=== PATIENT | female | born 1980 | race Caucasian/White ===

== ENCOUNTER 2020-08-17 05:34 | Day surgery (SDC) | payer BC ==
[2020-08-10 14:05] LABS: PRE OP HEMATOCRIT 39.3 % (35.0-45.0); PRE OP HEMOGLOBIN 13.6 g/dL (12.0-16.0)
[2020-08-10 14:07] LABS: CLARITY,URINE CLEAR (Clear); COLOR,URINE YELLOW (Yellow); GLUCOSE, URINE NEGATIVE (Neg); KETONES,URINE NEGATIVE (Neg); LEUKOCYTE ESTERASE ,URINE NEGATIVE (Neg); NITRITES, URINE NEGATIVE (Neg); OCCULT BLOOD,URINE TRACE-INTACT (Neg); PROTEIN,URINE NEGATIVE (Neg); UROBILINOGEN,URINE 0.2 E.U/dL (0.2-1.0)
[2020-08-10 14:08] LABS: BASOPHILS # (AUTO) 0.1 X10'3 (0-0.2); BASOPHILS % (AUTO) 0.7 % (0-1); EOSINOPHILS # (AUTO) 0.1 X10'3 (0-0.9); EOSINOPHILS % (AUTO) 0.8 % (0-6); LYMPHOCYTES # (AUTO) 3.2 X10'3 (1.1-4.8); LYMPHOCYTES % (AUTO) 20.1 % (21-51); MEAN CORPUSCULAR HEMOGLOBIN 30.7 PG (27.0-31.0); MEAN CORPUSCULAR HGB CONC 34.6 g/dL (33.0-36.5); MEAN CORPUSCULAR VOLUME 88.6 FL (78-98); MONOCYTES # (AUTO) 0.7 X10'3 (0-0.9); MONOCYTES % (AUTO) 4.2 % (2-12); NEUTROPHILS # (AUTO) 11.9 X10'3 (1.8-7.7); NEUTROPHILS % (AUTO) 74.2 % (42-75); PRE OP PLATELET COUNT 363 X10'3 (140-440); RED BLOOD COUNT 4.43 X10'6 (4.20-5.60); RED CELL DISTRIBUTION WIDTH 13.3 % (11.5-14.5)
[2020-08-10 14:13] LABS: HEMOGLOBIN A1C 6.5 % (4.5-6.2)
[2020-08-10 14:21] LABS: UA COLLECTION TYPE CLN CATCH MIDSTREAM
[2020-08-10 14:22] LABS: BACTERIA,URINE NONE SEEN /HPF (Neg); RBC,URINE 0-2 /HPF (0-2); SQUAMOUS EPITHELIAL CELL,UR NONE SEEN /LPF (FEW); WBC,URINE NONE SEEN /HPF (0-4)
[2020-08-10 14:23] LABS: ALBUMIN 3.6 G/DL (3.4-5.0); ALBUMIN/GLOBULIN RATIO 0.9 (1.1-1.5); ALKALINE PHOSPHATASE 136 IU/L (46-116); BLOOD UREA NITROGEN 11 MG/DL (7-18); BUN/CREATININE RATIO 17.2 (6.6-38.0); CALCIUM 9.2 MG/DL (8.5-10.1); CHLORIDE 99 MMOL/L (99-107); CREATININE 0.64 MG/DL (0.40-0.90); PRE OP ALT 56 U/L (30-65); PRE OP ANION GAP 8 (8-16); PRE OP AST 23 U/L (10-37); PRE OP BILIRUB, TOTAL 0.2 MG/DL (0.0-1.0); PRE OP GLUCOSE 95 MG/DL (70-104); PRE OP POTASSIUM 4.2 MMOL/L (3.4-5.1); PRE OP SODIUM 133 MMOL/L (135-145); TOTAL CARBON DIOXIDE 25.7 MMOL/L (24-32); TOTAL PROTEIN 7.6 G/DL (6.4-8.2); eGFR > 90 ML/MIN
[2020-08-10 14:41] LABS: HCG SERUM QL NEGATIVE
[~2020-08-17] VITALS: Ht 167.6 cm; Wt 114.3 kg
[2020-08-17] VITALS (19 sets, daily range): BP systolic 113–139; BP diastolic 60–79
[~2020-08-17 05:34] MED LIST: ASPI-1265 PO; BIRTHCONTROL PO; CALC1TAB PO; CETI-90 PO; CYCL-1 PO; FLUO20CA39 PO; IBUP-1984 PO; LOSA50TA3 PO; METF-900 PO; MONT10TA21 PO; MULT-1085 PO; OMEP-50 PO; SPIR50TA PO; SPIR50TA5 PO; VITA0.4T18 PO; albuterol 2.5 MG/3 ML nebule NEB ONE; ceFOXitin sod/dextrose 2g/50ml 50 ML IV ONE; famotidine 20mg tablet PO ONE
[2020-08-17] MEDS: ringers solution, lacted 1,000 ML IV SCH ×5 (06:17→14:31)
[2020-08-17] MEDS ORDERED: BUPIVAcaine/PF 2.5 mg/ml (0.25%) 30ml vial ONE (07:10)
[2020-08-17] MEDS ORDERED: clindamycin phosphate 40gm vag cream ONE (07:10)
[2020-08-17] MEDS ORDERED: neomy sulf/polymyxin B sulf. GU irrigation 1ml amp IR ONE (07:10)
[2020-08-17] MEDS ORDERED: vasoPRESSIN 20 units/ml inj. ONE (07:10)
[2020-08-17] MEDS ORDERED: midazolam 2 mg/2 ml injection ONE (07:30)
[2020-08-17] MEDS ORDERED: fentaNYL /PF 50mcg/ml 5ml ampule ONE (07:30)
[2020-08-17] MEDS ORDERED: propofol inj 20 ML IV ONE (07:38)
[2020-08-17] MEDS ORDERED: LIDOcaine 2% (20mg/ml) 5ml vial ONE (07:38)
[2020-08-17 07:42] LABS: BASOPHILS % (AUTO) 0.4 % (0-1); EOSINOPHILS # (AUTO) 0.2 X10'3 (0-0.9); EOSINOPHILS % (AUTO) 1.5 % (0-6); HEMATOCRIT 39.8 % (35.0-45.0); HEMOGLOBIN 13.5 g/dl (12.0-16.0); LYMPHOCYTES # (AUTO) 2.4 X10'3 (1.1-4.8); LYMPHOCYTES % (AUTO) 24.6 % (21-51); MEAN CORPUSCULAR HEMOGLOBIN 29.9 PG (27.0-31.0); MEAN CORPUSCULAR VOLUME 88.1 FL (78-98); MEAN PLATELET VOLUME 7.6 FL (7.4-10.4); MONOCYTES # (AUTO) 0.5 X10'3 (0-0.9); MONOCYTES % (AUTO) 5.4 % (2-12); NEUTROPHILS # (AUTO) 6.7 X10'3 (1.8-7.7); NEUTROPHILS % (AUTO) 68.1 % (42-75); PLATELET COUNT 317 X10'3 (140-440); RED BLOOD COUNT 4.51 X10'6 (4.20-5.60); RED CELL DISTRIBUTION WIDTH 13.1 % (11.5-14.5); WHITE BLOOD COUNT 9.8 X10'3 (4.5-11.0)
[2020-08-17] MEDS ORDERED: sevoflurane 250ml liquid IH ONE (07:45)
[2020-08-17] MEDS ORDERED: ringers solution, lacted 1,000 ML IV SCH (07:49)
[2020-08-17] MEDS ORDERED: meperidine/PF 25mg/ml syringe IV PRN ×3 (07:50)
[2020-08-17] MEDS ORDERED: ondansetron/PF 4mg/2ml inj IV PRN (07:50)
[2020-08-17] MEDS ORDERED: proCHLORperazine 10 MG/2 ml inj IV PRN (07:50)
[2020-08-17] MEDS ORDERED: morphine 2 MG/ML inj. syringe IV PRN (07:50)
[2020-08-17] MEDS ORDERED: morphine 4 MG/ML inj SYRINge IV PRN (07:50)
[2020-08-17] MEDS ORDERED: dexamethasone sod phosphate 4mg/ml inj. ONE (07:58)
[2020-08-17] MEDS ORDERED: rocuronium 10mg/ml inj IV ONE (07:58)
[2020-08-17] MEDS ORDERED: ondansetron/PF 4mg/2ml inj ONE (07:58)
[2020-08-17] MEDS ORDERED: bupivacaine 0.25%/epinephrine 1:200,000 inj (contains preserv. MDV) IJ ONE (09:27)
[2020-08-17] MEDS ORDERED: temazepam 15mg capsule PO PRN (09:55)
[2020-08-17] MEDS ORDERED: diphenhydrAMINE 50 mg/ml inj IV PRN (09:55)
[2020-08-17] MEDS ORDERED: HYDROcodone/acetaminophen 10/325mg tab PO PRN (09:55)
[2020-08-17] MEDS ORDERED: metoclopramide 5 mg/ml inj IV PRN (09:55)
[2020-08-17] MEDS ORDERED: LORazepam 1 MG tablet PO PRN (09:55)
[2020-08-17] MEDS ORDERED: LORazepam 2 mg/ml vial IV PRN (09:55)
[2020-08-17] MEDS ORDERED: normal saline 500ml IV soln 500 ML IV PRN (09:55)
[2020-08-17] MEDS ORDERED: magnesium hydroxide 30ml (MOM) UD suspension PO PRN (09:55)
[2020-08-17] MEDS ORDERED: meperidine/PF 50mg/ml syringe ONE (10:00)
--- NOTE | 2020-08-17 10:15 | NUR ---
ADMITTED TO PACU FROM OR ACCOMPANIED BY ANESTHESIA. INTIAL PHYSICAL ASSESSMENT DONE AND RECORDED. REPORT RECEIVED FROM ANESTHESIA. MEDICATED ORDERED BY ANESTHESIA.
[2020-08-17] MEDS: ketorolac trometh. 30mg/ml inj. IV PRN ×2 (10:44→21:46)
--- NOTE | 2020-08-17 11:30 | NUR ---
PACU DISCHARGE CRITERIA MET, REPORT GIVEN TO FLOOR. PAIN RELIEF OBTAINED DURING PACU STAY. COMFORTABLE UPON DISCHARGE, TRANSFERRED TO ROOM IN STABLE GOOD CONDITION.
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
[2020-08-17] MEDS: simethicone 80mg chew tab PO SCH ×2 (12:17→17:44)
[2020-08-17] MEDS: ondansetron/PF 4mg/2ml inj IV PRN ×2 (12:20→21:33)
[2020-08-17] MEDS: HYDROcodone/acetaminophen 10/325mg tab PO PRN ×2 (14:26→23:10)
--- NOTE | 2020-08-17 17:19 | NUR ---
patient up ambulated 600ft, tolerating clear liquid advanced to full lqd . Minimal drainage on peripad. VSS. medicated for pain x2, with effect. Call made to DR Sorto with regards home meds being addressed. will continue to monitor. Using IS .
[2020-08-17] MEDS ORDERED: cyclobenzaprine 10mg tablet PO PRN (18:25)
--- NOTE | 2020-08-17 18:42 | NUR ---
Patient in room [facility]. I have received report from JOSE Marie and had the opportunity to ask questions and assume patient care.
[2020-08-17] MEDS: docusate sod 100mg capsule PO SCH (19:16)
[2020-08-17] MEDS: nicotine 14mg patch - 24hr TD SCH (19:16)
[2020-08-17] MEDS ORDERED: spironolactone 50 MG tablet PO SCH (21:00)
[2020-08-17] MEDS ORDERED: montelukast 10mg tablet PO SCH (21:00)
[2020-08-17] MEDS ORDERED: metFORMIN 500mg tablet PO SCH (21:00)
[2020-08-18] VITALS: BP 126/71
[2020-08-18] MEDS: HYDROcodone/acetaminophen 10/325mg tab PO PRN ×2 (04:54→12:40)
[2020-08-18 06:12] LABS: BASOPHILS % (AUTO) 0.2 % (0-1); EOSINOPHILS % (AUTO) 0.1 % (0-6); HEMATOCRIT 36.2 % (35.0-45.0); HEMOGLOBIN 12.4 g/dl (12.0-16.0); LYMPHOCYTES # (AUTO) 2.8 X10'3 (1.1-4.8); LYMPHOCYTES % (AUTO) 15.6 % (21-51); MEAN CORPUSCULAR HEMOGLOBIN 30.6 PG (27.0-31.0); MEAN CORPUSCULAR HGB CONC 34.3 g/dL (33.0-36.5); MEAN CORPUSCULAR VOLUME 89.3 FL (78-98); MEAN PLATELET VOLUME 7.9 FL (7.4-10.4); MONOCYTES # (AUTO) 0.8 X10'3 (0-0.9); MONOCYTES % (AUTO) 4.3 % (2-12); NEUTROPHILS # (AUTO) 14.3 X10'3 (1.8-7.7); NEUTROPHILS % (AUTO) 79.8 % (42-75); PLATELET COUNT 304 X10'3 (140-440); RED BLOOD COUNT 4.06 X10'6 (4.20-5.60); RED CELL DISTRIBUTION WIDTH 13.3 % (11.5-14.5)
[2020-08-18 06:15] LABS: ALBUMIN 2.9 G/DL (3.4-5.0); ANION GAP 10 (8-16); BLOOD UREA NITROGEN 12 MG/DL (7-18); BUN/CREATININE RATIO 14.8 (6.6-38.0); CALCIUM 8.5 MG/DL (8.5-10.1); CHLORIDE 101 MMOL/L (99-107); CREATININE 0.81 MG/DL (0.40-0.90); GLUCOSE 154 MG/DL (70-104); POTASSIUM 3.8 MMOL/L (3.5-5.1); SODIUM 135 MMOL/L (135-145); TOTAL CARBON DIOXIDE 24.3 MMOL/L (24-32); eGFR 79 ML/MIN
--- NOTE | 2020-08-18 06:26 | NUR ---
Problems reprioritized. Patient report given, questions answered & plan of care reviewed with JOSE Israel.
--- NOTE | 2020-08-18 06:38 | NUR ---
Patient in room [facility]. I have received report from JOSE Walls and had the opportunity to ask questions and assume patient care.
[2020-08-18 06:57] VITALS: BP 133/79
[2020-08-18] MEDS ORDERED: vitamin B comp w/Vit. C tab 1 TAB TABLET PO SCH (08:00)
[2020-08-18] MEDS ORDERED: spironolactone 50 MG tablet PO SCH (08:00)
[2020-08-18] MEDS ORDERED: pantoprazole 40mg Tablet.DR PO SCH (08:00)
[2020-08-18] MEDS ORDERED: cetirizine 10mg tablet PO SCH (08:00)
[2020-08-18] MEDS ORDERED: losartan 50mg tablet PO SCH (08:00)
[2020-08-18] MEDS ORDERED: enoxaparin 40mg/0.4ml syringe SQ SCH (08:00)
[2020-08-18] MEDS ORDERED: calcium carbonate/vitamin D3 tablet PO SCH (08:00)
[2020-08-18] MEDS ORDERED: FLUoxetine 20mg capsule PO SCH (08:00)
[2020-08-18] MEDS ORDERED: multivitamins, therapeutics tablet PO SCH (08:00)
[2020-08-18] MEDS ORDERED: metFORMIN 500mg tablet PO SCH (08:00)
[2020-08-18] MEDS: simethicone 80mg chew tab PO SCH (09:12)
[2020-08-18 09:14] VITALS: BP_SYST 133
[2020-08-18] MEDS: docusate sod 100mg capsule PO SCH (09:14)
[2020-08-18] MEDS: nicotine 14mg patch - 24hr TD SCH (09:16)
[2020-08-18] MEDS: ondansetron/PF 4mg/2ml inj IV PRN (12:40)
== END 2020-08-18 13:00 | disposition home or self-care (01) ==
LOC: PAS 05:34 → SUR 3N 09:54 → PAS 08-18 13:00
PROVIDERS: ATTEND Obstetrics & Gynecology Obstetrics
DX: N93.9 Abnormal uterine and vaginal bleeding, unspecified (principal); R10.2 Pelvic and perineal pain; D25.2 Subserosal leiomyoma of uterus; D25.1 Intramural leiomyoma of uterus; N80.0 Endometriosis of uterus; I10 Essential (primary) hypertension; F17.210 Nicotine dependence, cigarettes, uncomplicated; F32.9 Major depressive disorder, single episode, unspecified; G43.909 Migraine, unspecified, not intractable, without status migrainosus; K21.9 Gastro-esophageal reflux disease without esophagitis; E66.9 Obesity, unspecified; Z68.41 Body mass index [BMI] 40.0-44.9, adult; Z79.899 Other long term (current) drug therapy; Z20.828 Contact with and (suspected) exposure to other viral communicable diseases; Z72.89 Other problems related to lifestyle; Z98.890 Other specified postprocedural states; Z80.41 Family history of malignant neoplasm of ovary; Z80.3 Family history of malignant neoplasm of breast
CPT/HCPCS: 36415; 58552; 71046; 80048; 80053; 81001; 82948; 83036; 84703; 85025; 86885; 86900; 86901; 87635; 93005; J0694; J1100; J1885; J2001; J2175; J2250; J2270; J2405; J2704; J3010; J3490; J7120; A4338; A4618; A7000; G0378; J1650